=== PATIENT | female | born 1945 | race Caucasian/White ===

== ENCOUNTER → 2017-04-25 | Outpatient (CLI) | payer MEDICARE, MEDICAID ==
[~2017-04-25] MED LIST: ALAVERT10 M1 PO; ASPIR-LOW81 MG PO; ASPIRIN E.C. 8181 MG PO; CAL-CITRATE PLU1 TAB PO; CELEXA 20MG20 MG/TAB PO; CELEXA10 MG PO; DIABETA 2.5MG2.5 MG PO; DITROPAN 5MG TAB5 MG PO; FORTAMET1000 MG PO; GLUCOPHAGE1000 MG PO; GLUCOPHAGE500 MG/TAB PO; GLYBURIDE MICRON3 MG PO; HCTZ 25MG25 MG PO; HYZAAR 25 MG-101 TAB PO; LASIX 20MG TABL20 MG PO; LEVAQUIN 5500 MG/TA1 PO; LEVOTHYROXINE0.1 MG PO; METOPROLOL SUCC25 MG PO; NEURONTIN300 MG/CAP PO; NIASPAN 500MG500 MG; NIASPAN1000 MG PO; NORCO 325 MG-51 TAB PO; PERCOCET 5/321 UDTAB PO; RANITIDINE HYD150 MG PO; SYNTHROID0.075 MG/T PO; TAB-A-VITE1 TA1 PO; VICTOZA6 MG/ML SC; VICTOZA6 MG/ML SQ; VITAMIN C500 MG PO; ZANTAC 150MG T150 MG PO; ZOCOR 20MG20 MG PO; ZOFRAN 4MG T4 MG/TAB PO
== END ==
LOC: MC.RAD 10:34
DX: Z12.31 Encounter for screening mammogram for malignant neoplasm of breast (principal)

== ENCOUNTER → 2017-07-26 | Outpatient (CLI) | payer MEDICARE, MEDICAID ==
[~2017-07-26] MED LIST changes: +ASPI325T6 PO; +DETROL LA4 PO; +NORCO 325 MG-7.1 TAB PO; +ROXICODONE 55 MG/TAB PO
[2017-07-26 11:38] LABS: HEMATOCRIT 41.9 % (37.0-47.0); HEMOGLOBIN 13.5 g/dl (12.5-16.0); MEAN CELL VOLUME 96 fl (80.0-100.0); MEAN CORPUSCULAR HEMOGLOBIN 31 pg (27.0-31.0); MEAN CORPUSCULAR HGB CONC 32 g/dl (33.0-37.0); PLATELET COUNT 272 K/mm3 (130-400); RED BLOOD COUNT 4.36 M/mm3 (4.10-5.30); WHITE BLOOD COUNT 6.3 K/mm3 (4.8-10.8)
[2017-07-26 12:07] LABS: ERYTHROCYTE SEDIMENTATION RATE 9 mm/hr (0-30)
== END ==
LOC: COL.LAB 10:55
PROVIDERS: Nurse Practitioner
DX: M25.562 Pain in left knee (principal); Z96.652 Presence of left artificial knee joint

== ENCOUNTER 2019-06-12 10:37 | Outpatient (CLI) | payer MEDICARE, MEDICAID ==
[2019-06-12] VITALS (8 sets, daily range): BP systolic 99–136; BP diastolic 29–85; PULSE 63–76; TEMP 98.8
[~2019-06-12] VITALS: Ht 160 cm; Wt 101.8 kg
[~2019-06-12 10:37] MED LIST changes: +COZAAR100 MG PO; -HYZAAR 25 MG-101 TAB PO
[2019-06-12] MEDS ORDERED: HCTZ 25MG TAB25 MG PO (12:11)
[2019-06-12] MEDS ORDERED: LIPITOR20 MG PO (12:13)
[2019-06-12] MEDS ORDERED: GLUCOTROL XL10 MG PO (12:14)
[2019-06-12] MEDS ORDERED: DESYREL 50MG50 MG PO (12:15)
[2019-06-12] MEDS ORDERED: ASPIRIN E.C. 8181 MG PO (12:15)
[2019-06-12] MEDS ORDERED: PRILOSEC 20MG20 MG PO (12:16)
[2019-06-12] MEDS ORDERED: VITAMIN C500 MG PO (12:16)
--- NOTE | 2019-06-12 13:06 | NUR ---
Pt back from procedure, p,w,d, awake and alert, dry and clean bandaids to two pucture sites on low back. pt denies any pain, friend is at bs.
--- NOTE | 2019-06-12 16:04 | NUR ---
Pt has done well during her recovery, she has been up and ambulatory with no problem to bathroom after 1 hour of bed rest. She has had no complaints, has been able to eat a few snacks and drink with no problem. She verbalized understanding of dc instructions r/t to her procedure today, and Dr. Saucedo was in to visit with her briefly during her recovery. Pt denies any concerns, IV is dc'd with cath intact, dressing applied. pt was escorted to exit via stretcher, her friend is driving her home.
== END 2019-06-12 16:15 | disposition home or self-care (01) ==
LOC: COL.CAR 10:37
DX: S32.040A Wedge compression fracture of fourth lumbar vertebra, initial encounter for closed fracture (principal); Z90.710 Acquired absence of both cervix and uterus; Z90.49 Acquired absence of other specified parts of digestive tract; Z96.652 Presence of left artificial knee joint; Z88.0 Allergy status to penicillin; Z87.891 Personal history of nicotine dependence; E11.9 Type 2 diabetes mellitus without complications; G47.33 Obstructive sleep apnea (adult) (pediatric); I10 Essential (primary) hypertension; M19.90 Unspecified osteoarthritis, unspecified site; E03.9 Hypothyroidism, unspecified; E06.3 Autoimmune thyroiditis; K21.9 Gastro-esophageal reflux disease without esophagitis; E66.9 Obesity, unspecified; Z68.39 Body mass index [BMI] 39.0-39.9, adult; F33.2 Major depressive disorder, recurrent severe without psychotic features; Z79.4 Long term (current) use of insulin; I25.10 Atherosclerotic heart disease of native coronary artery without angina pectoris
CPT/HCPCS: J2250; J3010

== ENCOUNTER 2020-07-25 01:38 | Emergency (ER) | payer MEDICARE, MEDICAID ==
[~2020-07-25] VITALS: Ht 160 cm; Wt 107.7 kg
[~2020-07-25 01:38] MED LIST changes: +DESYREL 50MG50 MG PO; +GLUCOTROL XL10 MG PO; +HCTZ 25MG TAB25 MG PO; +LIPITOR20 MG PO; +PRILOSEC 20MG20 MG PO
[2020-07-25 01:40] VITALS: TEMP 97.8
[2020-07-25] MEDS ORDERED: ZOFRAN ODT4 MG PO (01:53)
[2020-07-25 03:50] VITALS: BP 130/78; PULSE 78
== END 2020-07-25 04:00 | disposition home or self-care (01) ==
LOC: COL.ER 01:38
DX: R11.2 Nausea with vomiting, unspecified (principal); R19.7 Diarrhea, unspecified; I10 Essential (primary) hypertension; E78.5 Hyperlipidemia, unspecified; E11.9 Type 2 diabetes mellitus without complications; E03.9 Hypothyroidism, unspecified; Z88.0 Allergy status to penicillin; Z79.890 Hormone replacement therapy; Z79.84 Long term (current) use of oral hypoglycemic drugs; Z79.82 Long term (current) use of aspirin
CPT/HCPCS: J2405; J7030

== ENCOUNTER 2021-05-20 13:30 | Outpatient (RCR) | payer MEDICARE, MEDICAID ==
[~2021-05-20 13:30] MED LIST changes: +ZOFRAN ODT4 MG PO
== END 2021-05-24 09:23 | disposition home or self-care (01) ==
LOC: WSPT 13:30
DX: M25.561 Pain in right knee (principal); M54.2 Cervicalgia; M25.562 Pain in left knee; M54.41 Lumbago with sciatica, right side; G89.29 Other chronic pain

== ENCOUNTER 2022-03-03 01:01 | Emergency (ER) | payer MEDICARE, MEDICAID ==
[~2022-03-03] VITALS: Ht 160 cm; Wt 104.5 kg
[2022-03-03 01:04] VITALS: TEMP 98.4
[2022-03-03 02:45] LABS: COLLECTION METHOD CLEAN CATCH
[2022-03-03 02:55] LABS: MUCOUS Present (NOT PRESENT); PH 8 (5-8); SQUAMOUS EPITHELIAL 0-2 /hpf (0-10); URINE APPEARANCE Clear (CLEAR/HAZY); URINE BACTERIA None Seen /hpf (NONE SEEN); URINE BLOOD Negative (NEGATIVE); URINE COLOR Straw (YELLOW); URINE GLUCOSE Negative (NEGATIVE); URINE KETONE Negative (NEGATIVE); URINE NITRATE Negative (NEGATIVE); URINE PROTEIN(semi-quant) Negative (NEGATIVE); URINE RBC None Seen /hpf (0-2); URINE UROBILINOGEN Negative (NEGATIVE)
[2022-03-03] MEDS ORDERED: FLEXERIL 1010 MG/TAB PO (03:15)
[2022-03-03 03:26] VITALS: BP 105/72; PULSE 69
== END 2022-03-03 04:14 | disposition home or self-care (01) ==
LOC: COL.ER 01:01
PROVIDERS: Emergency Medicine Emergency Medical Services
DX: R10.9 Unspecified abdominal pain (principal); E66.9 Obesity, unspecified; Z90.49 Acquired absence of other specified parts of digestive tract
CPT/HCPCS: J3010

== ENCOUNTER 2023-09-17 14:27 | Inpatient (IN) | payer MEDICARE, MEDICAID ==
[~2023-09-17] VITALS: Ht 160 cm; Wt 109.0 kg
[~2023-09-17 14:27] MED LIST changes: +FLEXERIL 1010 MG/TAB PO
[2023-09-17] MEDS ORDERED: NS 1,000 ML IV ONE (15:30)
[2023-09-17 15:40] LABS: BASO % 0.3 % (0.0-2.0); EOS # 0.7 K/mm3 (0.0-0.7); EOS % 8.4 % (0.0-4.0); GRAN # 5.6 K/mm3 (1.4-6.5); GRAN % 72.3 % (42.2-75.2); HEMATOCRIT 37.6 % (37.0-47.0); HEMOGLOBIN 12.4 g/dl (12.5-16.0); LYMPH # 0.8 K/mm3 (1.2-3.4); LYMPH % 10.1 % (20.0-51.0); MEAN CELL VOLUME 91 fl (80.0-100.0); MEAN CORPUSCULAR HEMOGLOBIN 30 pg (27-31); MEAN CORPUSCULAR HGB CONC 33 g/dl (33.0-37.0); MEAN PLATELET VOLUME 11.8 fl (7.4-10.4); MONO # 0.7 K/mm3 (0.1-0.6); MONO % 8.4 % (1.7-9.3); PLATELET COUNT 134 K/mm3 (130-400); RED BLOOD COUNT 4.14 M/mm3 (4.10-5.30); REDCELL DISTRIBUTION WIDTH-CV 13.7 % (11.5-14.5)
[2023-09-17 15:43] LABS: COLLECTION METHOD CLEAN CATCH
[2023-09-17 15:56] LABS: URINE APPEARANCE TURBID (CLEAR/HAZY); URINE BLOOD NEGATIVE (NEGATIVE); URINE COLOR Dark Yellow (YELLOW); URINE GLUCOSE NEGATIVE (NEGATIVE); URINE KETONE TRACE (NEGATIVE); URINE NITRATE NEGATIVE (NEGATIVE); URINE PROTEIN(semi-quant) 3+ (NEGATIVE)
[2023-09-17 16:05] LABS: ALBUMIN 2.9 gm/dL (3.4-4.8); BILIRUBIN,TOTAL 1.1 mg/dL (0.2-1.2); CALCIUM 8.6 mg/dL (8.4-10.2); CREATININE, serum 3.26 mg/dL (0.57-1.11); POTASSIUM 3.4 mmol/L (3.5-4.5); TOTAL PROTEIN 6.3 gm/dL (6.2-8.1)
[2023-09-17 16:16] LABS: AMORPHOUS CRYSTAL PRESENT (NOT PRESENT); SQUAMOUS EPITHELIAL 20-50 /hpf (0-10); URINE RBC 0-2 /hpf (0-2)
[2023-09-17 16:17] LABS: URINE BACTERIA MODERATE /hpf (NONE SEEN)
[2023-09-17] MEDS ORDERED: cefTRIAXone 1 G in Water For Injection,Sterile 10 ML IV ONE (16:45)
[2023-09-17] MEDS ORDERED: PROTONIX 40MG T40 MG PO (17:04)
[2023-09-17] MEDS ORDERED: Heparin 5,000 UNITS/ML 1 ML VIAL SQ SCH (17:15)
[2023-09-17] MEDS ORDERED: Docusate Sodium 100 MG CAP PO PRN (17:15)
[2023-09-17] MEDS ORDERED: Polyethylene Glycol 3350 17 GM PDS PO PRN (17:15)
[2023-09-17] MEDS ORDERED: Ondansetron 4 MG/2 ML VIAL IV PRN (17:15)
[2023-09-17] MEDS ORDERED: NS 1,000 ML IV SCH (17:15)
[2023-09-17] MEDS ORDERED: hydrALAZINE 20 MG/ML 1 ML VIAL IV PRN (17:30)
[2023-09-17] MEDS ORDERED: Glucagon 1 MG VIAL IM PRN (17:45)
[2023-09-17] MEDS ORDERED: Dextrose (Glucose) 15 GM (4 x 3.75 GM) Chewable TABLET PACK PO PRN (17:45)
[2023-09-17] MEDS ORDERED: Dextrose 50% Water 25 GM/50 ML SYRINGE IV PRN (17:45)
[2023-09-17] MEDS ORDERED: Insulin Aspart (NovoLOG) SQ SCH (18:00)
--- NOTE | 2023-09-17 18:00 | NUR ---
PATINET AWAKE AND ALERT, SITTING UP IN BED. PATIENT DENIES ANY NEEDS OR CMOPLAINTS AT THIS TIME. CALL LIGHT WITHIN REACH. VSS
[2023-09-17 18:14] VITALS: BP 99/65; PULSE 85; TEMP 97.6
[2023-09-17 19:05] VITALS: BP_SYST 99
[2023-09-17 19:27] VITALS: BP 100/59; PULSE 82; TEMP 98
[2023-09-17] MEDS ORDERED: Nystatin Powder **** subs to Miconazole Powder TOP SCH (21:00)
[2023-09-17] MEDS ORDERED: Miconazole 2% Topical Powder BOTTLE TP SCH (21:00)
[2023-09-17] MEDS ORDERED: diphenhydrAMINE 25 MG CAP PO SCH (21:00)
[2023-09-17] MEDS ORDERED: Atorvastatin 20 MG TAB PO SCH (21:00)
[2023-09-17 23:05] VITALS: BP 107/69; PULSE 79; TEMP 97.5
[2023-09-18] VITALS (7 sets, daily range): BP systolic 94–117; BP diastolic 52–80; PULSE 60–87; TEMP 97.5–98.3
[2023-09-18] MEDS ORDERED: LYRICA 100MG C100 M1 PO (03:46)
[2023-09-18] MEDS ORDERED: DETROL LA4 PO (03:49)
--- NOTE | 2023-09-18 06:33 | NUR ---
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 PT HAD A SUBSTANTIAL AMOUNT OF DIARRHEA AT THE BEGINNING OF THE SHIFT. PT ALSO HAD A LOW BS OF 56 WITH COMPLAINS BLURRY VISION AND LIGHTHEADEDNESS. PT GIVEN GLUCOSE TABS AND ORANGE JUICE. BS UP TO 152. HS INSULIN HELD. HOSPITALIST INFORMED. PT GIVEN SCHEDULED BENADRYL FOR HER RASH. RASH DOESN'T SEEM TO BE IMPROVING. PT DENIED GENERAL PAIN, CHEST PAIN, PALPITATIONS, SOB, N,V OR DIZZINESS. BED ALARM ON. CALL LIGHT WITHIN REACH.
[2023-09-18 06:34] LABS: COLLECTION METHOD CLEAN CATCH
[2023-09-18 06:47] LABS: URINE APPEARANCE CLOUDY (CLEAR/HAZY); URINE BLOOD NEGATIVE (NEGATIVE); URINE COLOR YELLOW (YELLOW); URINE GLUCOSE NEGATIVE (NEGATIVE); URINE KETONE NEGATIVE (NEGATIVE); URINE NITRATE NEGATIVE (NEGATIVE); URINE PROTEIN(semi-quant) 1+ (NEGATIVE); URINE UROBILINOGEN 0.2 E.U/dL (0.2-1.0)
[2023-09-18 07:01] LABS: AMORPHOUS CRYSTAL PRESENT (NOT PRESENT); MUCOUS PRESENT (NOT PRESENT); URINE BACTERIA MODERATE /hpf (NONE SEEN)
[2023-09-18] MEDS ORDERED: Loratadine 10 MG TAB PO SCH (09:00)
[2023-09-18] MEDS ORDERED: NS 1,000 ML IV SCH ×2 (09:00→15:40)
[2023-09-18] MEDS ORDERED: Citalopram 20 MG TAB PO SCH (09:00)
--- NOTE | 2023-09-18 09:45 | NUR ---
PT LAYING IN BED UPON ENTERING. ASSESSMENT DONE, MEDS GIVEN PER ORDER. PT DENIES PAIN. RIGHT AC INT PATENT. LAB UNABLE TO GET BLOOD THIS MORNING AND HOSPITALIST ORDERED PICC PLACEMENT, PT VERBALIZES UNDERSTANDING. PT HAS A SCATTERED RASH OVER BILATERAL LOWER AND UPPER EXTREMITIES, TRUNK AND CHEST. PT DENIES PRURITIS AT THIS TIME. PT HAS ALL 4 BED RAILS UP AND NOTIFIED THAT WE GENERALLY KEEP AT ONE DOWN FOR SAFETY. PT STATES THAT SHE PULLED IT UP HERSELF AND IS ABLE TO LOWER IT. PT ORIENTED X4 AND STATES THAT SHE WILL CALL IF SHE NEEDS HELP. PT DENIES NEEDS AT THIS TIME. BED IN LOWEST POSITION, CALL LIGHT IN REACH.
--- NOTE | 2023-09-18 09:58 | NUR ---
Initial visit; Patient has family support with her and daughter with her. Doreen thanked [employer] for stopping and offering God's blessings and a get well message.
[2023-09-18] MEDS ORDERED: predniSONE 50 MG TAB PO SCH (10:00)
[2023-09-18 12:16] LABS: HEMOGLOBIN 10.7 g/dl (12.5-16.0); MEAN CELL VOLUME 91 fl (80.0-100.0); MEAN CORPUSCULAR HEMOGLOBIN 30 pg (27-31); MEAN CORPUSCULAR HGB CONC 33 g/dl (33.0-37.0); MEAN PLATELET VOLUME 12.3 fl (7.4-10.4); PLATELET COUNT 118 K/mm3 (130-400); RED BLOOD COUNT 3.55 M/mm3 (4.10-5.30); REDCELL DISTRIBUTION WIDTH-CV 13.8 % (11.5-14.5)
[2023-09-18 12:20] LABS: HEMATOCRIT 32.3 % (37.0-47.0)
[2023-09-18] MEDS ORDERED: CLARITIN 1010 MG/TAB PO (12:25)
[2023-09-18] MEDS ORDERED: GLUCOPHAGE XR500 M1 PO (12:34)
[2023-09-18] MEDS ORDERED: HYZAAR 25 MG-101 TAB PO (12:36)
[2023-09-18 12:37] LABS: CALCIUM 7.9 mg/dL (8.4-10.2); POTASSIUM 3.2 mmol/L (3.5-4.5)
--- NOTE | 2023-09-18 12:43 | NUR ---
PT SITTING IN CHAIR UPON ENTERING. MED GIVEN PER ORDER. FLUIDS RUNNING IN PICC WITHOUT COMPLICATIONS. CALL LIGHT IN REACH
[2023-09-18 13:01] LABS: BAND 15 % (0-10); EOSINOPHIL 19 % (0-4); LYMPHOCYTE 18 % (20.0-51.0); NEUTROPHILS 44 % (42.0-75.2); PLATELET ESTIMATE DECREASED (NORMAL)
[2023-09-18 13:06] LABS: CREATININE, serum 2.67 mg/dL (0.57-1.11)
[2023-09-18] MEDS ORDERED: Potassium Chloride 100 ML IV ONE (13:15)
--- NOTE | 2023-09-18 13:59 | NUR ---
mesh worker and Student, Therese, met with patient and family member, Suman, to discuss discharge planing. Patient lives alone in [place]. PCP is [facility], pharmacy is [facility]. No issues affording medications. Suman (Son) [phone] and Pili Redding (daughter) [phone]. Suman stated he was leaving town today but Pili would be available for calls if needed. Insurance is Medicare A & B and Medicaid. Patient is interested in completing DPOA-HC today but wanted to speak with her family first. DME is a CPAP and walker. Reports to be independent with ADLS prior to hospitalization. Patient's family or friends assists her with transportation to and from appointments. Discharge plan pending PT/OT recommendations. OT recommends patient return home with family support. ROSMERY contacted PT, Alva, whom expressed patient could return home with family support. ROSMERY will discuss if patient would like home health services or return home with family support. Discharge plan: Home
--- NOTE | 2023-09-18 16:45 | NUR ---
NEW BAG OF FLUIDS HUNG AND RUNNING AT 100 MLS/HR PER ORDER. PT SITTING UP IN BED EATING AND DENIES NEEDS AT THIS TIME. BED IN LOWEST POSITION, CALL LIGHT IN REACH.
--- NOTE | 2023-09-18 16:46 | NUR ---
DR WANG ASKED IF SHE WOULD LIKE A REPEAT POTASSIUM DRAWN AFTER CURRENT BAG FINISHED AND GAVE THIS NURSE A VERBAL ORDER TO CHECK 2 HOURS AFTER DOSE COMPLETE.
--- NOTE | 2023-09-18 17:05 | NUR ---
garbage pick up worker and ROSMERY Student met with patient to discuss PT/OT recommendations. ROSMERY presented Medicare.gov list of options for Home Health. Patient wants to discuss options with family. ROSMERY left a voicemail with patient's daughter, Pili. ROSMERY will follow up tomorrow. Discharge plan: Home with home health
--- NOTE | 2023-09-18 19:05 | NUR ---
PATIENT RESTING IN BED WITH DAUGHTER AT BEDSIDE WITH TV ON WITH NO ACUTE DISTRESS NOTED. PATIENT ON ROM AIR. PICC LINE INTACT TO RIGHT UPPER ARM WITH NO COMPLICATIONS NOTED. PATIENT DENIES ANY NEEDS. PATIENT CARE ASSUMED FROM KARYN AT THIS TIME. BED IN LOW POSITION WITH WHEELS LOCKED WITH RAILS UP X3 AND CALL LIGHT WITHIN REACH.
--- NOTE | 2023-09-18 19:40 | NUR ---
PATIENT RESTING IN BED WITH TV ON WITH FAMILY AT BEDSIDE WITH NO ACUTE DISTRESS NOTED. PATIENT ON ROOM AIR. PICC LINE INTACT WITH NO COMPLICATIONS NOTED. BLOOD DRAWN FROM [place] FOR LAB AT THIS TIME. [place] FLUSHED. ASSESSMENT COMPLETED AT THIS TIME. PATIENT TOLERATED WELL. ALL NEEDS MET. BED IN LOW POSITION WITH WHEELS LOCKED WITH RAILS UP X3 AND CALL LIGHT WITHIN REACH.
--- NOTE | 2023-09-18 20:53 | NUR ---
PATIENT RESTING IN BED WITH TV ON WITH NO FAMILY PRESENT WITH NO ACUTE DISTRESS NOTED. PATIENT ON ROOM AIR. PICC LINE INTACT WITH NS INFUSING WITH NO COMPLICATIONS NOTED. MEDICATION ADMINISTRATION COMPLETED AT THIS TIME. PATIENT REQUESTED ICE AND WATER. BOTH GIVEN. PATIENT TOLERATED WELL. ALL NEEDS MET. BED IN LOW POSITION WITH WHEELS LOCKED WITH RAILS UP X3 AND CALL LIGHT WITHIN REACH.
[2023-09-19] VITALS (12 sets, daily range): BP systolic 96–119; BP diastolic 53–70; PULSE 58–79; TEMP 97.7–98.5
--- NOTE | 2023-09-19 01:53 | NUR ---
PATIENT REQUESTED SOMETHING FOR SLEEP. HOSPITALIST CALLED. ORDER RECIEVED FOR HOME MEDICATION OF TRAZODONE 50 MG PO EVERY EVENING.
[2023-09-19] MEDS ORDERED: traZODone 50 MG TAB PO SCH (01:55)
[2023-09-19 06:51] LABS: HEMOGLOBIN 10.6 g/dl (12.5-16.0); MEAN CELL VOLUME 89 fl (80.0-100.0); MEAN CORPUSCULAR HEMOGLOBIN 30 pg (27-31); MEAN CORPUSCULAR HGB CONC 34 g/dl (33.0-37.0); PLATELET COUNT 122 K/mm3 (130-400); RED BLOOD COUNT 3.51 M/mm3 (4.10-5.30); REDCELL DISTRIBUTION WIDTH-CV 13.5 % (11.5-14.5)
[2023-09-19 07:00] LABS: CALCIUM 8.1 mg/dL (8.4-10.2); CREATININE, serum 1.66 mg/dL (0.57-1.11); POTASSIUM 3.8 mmol/L (3.5-4.5)
--- NOTE | 2023-09-19 07:00 | NUR ---
PATIENT AWAKE AND ALERT, SITTING UP IN BED. NS AT 100CC/HR THROUGH CHELSY PICC. PATIENT DENIES ANY NEEDS OR COMPLAINTS AT THIS TIME. CALLL LIGHT WITHIN REACH, BED ALARM ON.
[2023-09-19 07:02] LABS: HEMATOCRIT 31.3 % (37.0-47.0)
[2023-09-19 07:20] LABS: BAND 18 % (0-10); EOSINOPHIL 1 % (0-4); LYMPHOCYTE 30 % (20.0-51.0); NEUTROPHILS 48 % (42.0-75.2)
[2023-09-19 07:21] LABS: PLATELET ESTIMATE NORMAL (NORMAL)
--- NOTE | 2023-09-19 07:47 | NUR ---
THIS RN CALLED LAB TO INFORMED THEM ON 09/17 THERE ARE TWO BLOOD CULTURES ORDERED. ONE THAT SHOWS "PENDING" LIKE IT IS STILL PROCESSING BUT WILL RESULT, AND THE OTHER SHOWS "PENDING RECIEPT" LIKE IT HAS NOT YET BEEN DRAWN. PER LAB THEY ONLY SHOW ONE BLOOD CULTURE ORDERED, AND IF A SECOND IS NEEDED IT WILL NEED TO BE ORDERED. THIS RN WILL SPEAK WITH MD DURING ROUNDS.
--- NOTE | 2023-09-19 07:59 | NUR ---
LAB CAME TO UNIT FOR RN TO DRAW BLOOD FROM PICC LINE FOR BLOOD CULTURE.
[2023-09-19] MEDS ORDERED: predniSONE 20 MG TAB PO SCH (09:00)
--- NOTE | 2023-09-19 09:38 | NUR ---
0900-REQUEST FOR CMP AND URINE CULTURE RESULTS FROM PTS PCP FAXED. PRIMARY RN NOTIFIED.
--- NOTE | 2023-09-19 12:44 | NUR ---
NO FAX HAS BEEN RECIEVED FROM PCP OFFICE. SILK PRESSER HAS REACHED OUT TO OFFICE AGAIN.
--- NOTE | 2023-09-19 13:52 | NUR ---
PATIENT AWAKE AND ALERT, SITTING UP IN RECLINER . IVF PER ORDER. CALL LIGTH WITHIN REACH.
[2023-09-19] MEDS ORDERED: Potassium Chloride 100 ML IV ONE (15:30)
--- NOTE | 2023-09-19 16:34 | NUR ---
soaker soda worker and SW Student met with patient to follow up if she wanted home health. Patient declined home health at this time. SW expressed if patient returned home and needed these services that she can have them set up with the PCP. Patient understood.
--- NOTE | 2023-09-19 17:50 | NUR ---
PATIENT AWAKE AND ALERT, SITTING UP IN BED. DENIES ANY NEEDS OR COMPLAINTS AT THIS TIME. PATIENTS SON AT BEDSIDE. CALL LIGHT WITHIN REACH.
--- NOTE | 2023-09-19 22:06 | NUR ---
patient lying in bed alert and oriented x4. pt denies chest pain and shortness of breath. PICC in CHELSY is patent, site is clean dry and intact with NS running at 100 ml/hr. slight rash/hives noted on all extremities and small portion on chest from previous medication reaction, small bruising noted on hands and upper extremities. pt has no further needs, questions or concerns at this time. ambulating with steady gait using rolling walker or stabilizing using handrail/wall. bipap on. call light within reach. will continue to monitor.
[2023-09-19] MEDS ORDERED: NS 1,000 ML IV SCH (22:30)
[2023-09-20] VITALS (7 sets, daily range): BP systolic 100–113; BP diastolic 62–65; PULSE 62–70; TEMP 97.4–98.3
[2023-09-20 06:49] LABS: BASO % 0.4 % (0.0-2.0); EOS # 0.5 K/mm3 (0.0-0.7); GRAN # 4.6 K/mm3 (1.4-6.5); LYMPH # 2.1 K/mm3 (1.2-3.4); LYMPH % 27.1 % (20.0-51.0); MEAN CELL VOLUME 92 fl (80.0-100.0); MEAN CORPUSCULAR HEMOGLOBIN 30 pg (27-31); MEAN CORPUSCULAR HGB CONC 33 g/dl (33.0-37.0); MEAN PLATELET VOLUME 12.4 fl (7.4-10.4); MONO # 0.5 K/mm3 (0.1-0.6); MONO % 6.7 % (1.7-9.3); PLATELET COUNT 119 K/mm3 (130-400); RED BLOOD COUNT 3.32 M/mm3 (4.10-5.30); REDCELL DISTRIBUTION WIDTH-CV 13.9 % (11.5-14.5)
[2023-09-20 06:56] LABS: HEMATOCRIT 30.5 % (37.0-47.0)
[2023-09-20 07:04] LABS: CALCIUM 8.2 mg/dL (8.4-10.2); CREATININE, serum 1.03 mg/dL (0.57-1.11); POTASSIUM 3.8 mmol/L (3.5-4.5)
[2023-09-20] MEDS ORDERED: PREDNISONE10 MG PO (08:27)
[2023-09-20] MEDS ORDERED: predniSONE 20 MG TAB PO SCH (09:00)
--- NOTE | 2023-09-20 10:46 | NUR ---
Patient awake, alert and oriented. Denies pain, shortness of breath, or nausea. Able to ambulate with rollator, steady on feet. Bed in lowest position with call light within reach.
--- NOTE | 2023-09-20 11:00 | NUR ---
Social Work student Therese met with pt to discuss Important Message from Medicare form. Pt understood and signed document. Discharge Plan: Home
--- NOTE | 2023-09-20 11:15 | NUR ---
Patient discharged to home, picked up by daughter. Educated on discharge instructions, new medications, and post-PICC removal instructions, pt verbalized understanding. PICC removed by IV services, pt following bedrest protocol. nurse monitoring removed prior to discharge. Assisted out to car by nursing staff - all belongings sent home with patient, including rollator.
--- NOTE | 2023-09-20 12:29 | NUR ---
ROSMERY Student Therese provided patient a copy of the important message from Medicare that patient reviewed and signed and placed original in the chart.
== END 2023-09-20 12:40 | disposition home or self-care (01) | DRG 683 ==
LOC: COL.ER 14:27 → MEDICAL 17:09
PROVIDERS: Physician Assistant; ADMIT Internal Medicine
PROC: 02HV33Z Insertion of Infusion Device into Superior Vena Cava, Percutaneous Approach (ICD-10-PCS; principal; 2023-09-18)
PROC: 5A09457 Assistance with Respiratory Ventilation, 24-96 Consecutive Hours, Continuous Positive Airway Pressure (ICD-10-PCS; 2023-09-18)
DX: N17.9 Acute kidney failure, unspecified (principal); E87.20 Acidosis, unspecified; Z68.41 Body mass index [BMI] 40.0-44.9, adult; N10 Acute pyelonephritis; I10 Essential (primary) hypertension; Z96.652 Presence of left artificial knee joint; E03.9 Hypothyroidism, unspecified; H40.9 Unspecified glaucoma; E78.5 Hyperlipidemia, unspecified; Z66 Do not resuscitate; G47.33 Obstructive sleep apnea (adult) (pediatric); K21.9 Gastro-esophageal reflux disease without esophagitis; F32.A Depression, unspecified; E66.01 Morbid (severe) obesity due to excess calories; T37.8X5A Adverse effect of other specified systemic anti-infectives and antiparasitics, initial encounter; E11.9 Type 2 diabetes mellitus without complications; Z90.710 Acquired absence of both cervix and uterus; Z90.49 Acquired absence of other specified parts of digestive tract; Z88.0 Allergy status to penicillin; Z88.8 Allergy status to other drugs, medicaments and biological substances; Z99.89 Dependence on other enabling machines and devices; Z79.82 Long term (current) use of aspirin; Z79.84 Long term (current) use of oral hypoglycemic drugs; Z79.899 Other long term (current) drug therapy; Z79.890 Hormone replacement therapy; Z23 Encounter for immunization
CPT/HCPCS: C1751; J0696; J1644; J1815; J3480; J7030; J7512